=== PATIENT | female | born 1995 | race Caucasian/White ===

== ENCOUNTER 2018-08-03 20:58 | Inpatient (IN) | payer BC ==
[~2018-08-03] VITALS: Ht 165.1 cm; Wt 90.5 kg
[2018-08-03] MEDS ORDERED: KETOROLAC 30 MG INJ IM STA (21:56)
--- NOTE | 2018-08-03 22:09 | ERD ---
ER Documentation Chief Complaint Chief Complaint RLQ ab pain since 1148 HPI 23-year-old female with past medical history of gallstones who presents with complaint of right lower quadrant abdominal pain since this morning. Patient st ates pain is typical of pain when she had prior to being diagnosed with gallstones in 2018 but pain did not latrell as usual with her elixir of vinegar and lemon juice. Pain is remained localized to the right lower quadrant without radiation, she has had intermittent nausea but reports no vomiting episodes, diarrhea, and she is without urinary symptoms. Last menstrual period was about 2 weeks ago and reported as normal. She otherwise denies fevers, chills, chest pain, shortness of breath, no bleeding or discharg or any other concerning symptoms. ROS All systems reviewed and are negative except as per history of present illness. Medications Home Meds Active Scripts Ondansetron (Ondansetron Odt) 4 Mg Tab.rapdis, 4 MG PO Q6H PRN for NAUSEA AND/OR VOMITING, #10 TAB Prov:JEUDINE,GETHO PA-C 08/03/18 Ibuprofen* (Motrin*) 600 Mg Tab, 600 MG PO Q6, #30 TAB Prov:JEUDINE,GETHO PA-C 08/03/18 Tramadol HCl (Tramadol HCl) 50 Mg Tablet, 50 MG PO Q6 PRN for PAIN, #20 TAB Prov:JEUDINE,GETHO PA-C 08/03/18 Cephalexin* (Keflex*) 500 Mg Capsule, 500 MG PO BID for 7 Days, CAP Prov:JEUDINE,GETHO PA-C 08/03/18 Allergies Allergies: Coded Allergies: No Known Allergy (Unverified , 08/03/18) PMhx/Soc Medical and Surgical Hx: pt denies Surgical Hx History of Surgery: No Anesthesia Reaction: No Hx Neurological Disorder: No Hx Respiratory Disorders: No Hx Cardiac Disorders: No Hx Psychiatric Problems: No Hx Miscellaneous Medical Probl: Yes (GALLSTONES) Hx Alcohol Use: No Hx Substance Use: No Hx Tobacco Use: No Smoking Status: Never smoker FmHx Family History: No diabetes, No coronary disease, No other Physical Exam Vitals Vital Signs Date Temp Pulse Resp B/P (MAP) Pulse Ox O2 O2 Flow FiO2 Time Delivery Rate 08/03/18 97.2 109 20 152/93 97 21:01 (112) Physical Exam Const: No acute distress Head: Atraumatic Eyes: Normal Conjunctiva ENT: Normal External Ears, Nose and Mouth. Neck: Full range of motion. No meningismus. Resp: Clear to auscultation bilaterally Cardio: Regular rate and rhythm, no murmurs Abd: Soft, tender to deep palpation to right lower quadrant, no rebound or guarding, non distended. Normal bowel sounds Skin: No petechiae or rashes Back: No midline or flank tenderness Ext: No cyanosis, or edema Neur: Awake and alert Psych: Normal Mood and Affect Result Diagram: 08/03/18220708/03/182207 Results 24 hrs Laboratory Tests Test 08/03/18 22:08 08/03/18 22:15 White Blood Count 9.1 10^3/ul Red Blood Count 4.67 10^6/ul Hemoglobin 12.7 g/dl Hematocrit 38.9 % Mean Corpuscular Volume 83.3 fl Mean Corpuscular Hemoglobin 27.2 pg Mean Corpuscular Hemoglobin Concent 32.6 g/dl Red Cell Distribution Width 12.5 % Platelet Count 261 10^3/UL Mean Platelet Volume 9.8 fl Immature Granulocytes % 0.200 % Neutrophils % 65.3 % Lymphocytes % 24.0 % Monocytes % 9.5 % Eosinophils % 0.7 % Basophils % 0.3 % Nucleated Red Blood Cells % 0.0 /100WBC Immature Granulocytes # 0.020 10^3/ul Neutrophils # 5.9 10^3/ul Lymphocytes # 2.2 10^3/ul Monocytes # 0.9 10^3/ul Eosinophils # 0.1 10^3/ul Basophils # 0.0 10^3/ul Nucleated Red Blood Cells # 0.0 10^3/ul Urine Color ANÍBAL Urine Clarity CLOUDY Urine pH 5.0 Urine Specific [place] 1.021 Urine Ketones NEGATIVE mg/dL Urine Nitrite NEGATIVE mg/dL Urine Bilirubin NEGATIVE mg/dL Urine Urobilinogen 1+ mg/dL Urine Leukocyte Esterase 2+ Cornelio/ul Urine Microscopic RBC 92 /HPF Urine Microscopic WBC 23 /HPF Urine Squamous Epithelial Cells MODERATE /HPF Urine Bacteria MANY /HPF Urine Mucus FEW /HPF Urine Hemoglobin NEGATIVE mg/dL Urine Glucose NEGATIVE mg/dL Urine Total Protein NEGATIVE mg/dl Sodium Level 141 mmol/L Potassium Level 3.9 mmol/L Chloride Level 107 mmol/L Carbon Dioxide Level 26 mmol/L Anion Gap 8 Blood Urea Nitrogen 7 mg/dl Creatinine 0.68 mg/dl Est Glomerular Filtrat Rate mL/min > 60 mL/min Glucose Level 103 mg/dl Calcium Level 9.3 mg/dl Total Bilirubin 0.9 mg/dl Direct Bilirubin 0.00 mg/dl Indirect Bilirubin 0.9 mg/dl Aspartate Amino Transf (AST/SGOT) 748 IU/L Alanine Aminotransferase (ALT/SGPT) 600 IU/L Alkaline Phosphatase 121 IU/L Total Protein 7.3 g/dl Albumin 4.2 g/dl Globulin 3.10 g/dl Albumin/Globulin Ratio 1.35 Lipase 1861 U/L POC Beta HCG, Qualitative NEGATIVE Current Medications Medications Dose Sig/Slava Start Time Status Last (Trade) Ordered Route PRN Stop Time Admin Dose Reason Admin Ketorolac 30 mg ONCE STAT 08/03/18 DC 08/03/18 Tromethamine IM 21:56 22:21 (Toradol) 08/03/18 22:00 Sodium 1,000 ml @ Q8H IV 08/04/18 Chloride 125 mls/hr 00:00 Ondansetron 4 mg ONCE STAT 08/03/18 DC HCl (Zofran IV 23:42 Inj) 08/03/18 23:46 Procedures/MDM 23 yo non- woman with known history of gallstones presenting with abdominal pain. Given laboratory studies and ultrasound findings concern is for gallstone pancreatitis. Patient to be admitted for further evaluation per discussion with Dr. Unger ED attending. ED course: Gallbladder ultrasound for evidence of cholecystitis, common bile duct dilation at 3.6 cm, unremarkable kidneys, unremarkable head of pancreas, tail not visualized Lipase > 1800, elevated AST and ALT, no WBC elevation Medications Toradol, Zofran, 1 L normal saline DISPOSITION PLAN: Be admitted to MedSurg floor for further evaluation and care Line for MRCP Case discussed with Dr. Unger Departure Diagnosis: Primary Impression: Abdominal pain Condition: Stable Patient Instructions: Abdominal Pain Referrals: [facility] YOU HAVE RECEIVED A MEDICAL SCREENING EXAM AND THE RESULTS INDICATE THAT YOU DO NOT HAVE A CONDITION THAT REQUIRES URGENT TREATMENT IN THE EMERGENCY DEPARTMENT. FURTHER EVALUATION AND TREATMENT OF YOUR CONDITION CAN WAIT UNTIL YOU ARE SEEN IN YOUR DOCTORS OFFICE WITHIN THE NEXT 1-2 DAYS. IT IS YOUR RESPONSIBILITY TO MAKE AN APPOINTMENT FOR FOLOW-UP CARE. IF YOU HAVE A PRIMARY DOCTOR --you should call your primary doctor and schedule an appointment IF YOU DO NOT HAVE A PRIMARY DOCTOR YOU CAN CALL OUR PHYSICIAN REFERRAL HOTLINE AT IF YOU CAN NOT AFFORD TO SEE A PHYSICIAN YOU CAN CHOSE FROM THE FOLLOWING [facility] [address] [facility] [address] [facility] [address] [facility] [address] [facility] [address] [facility] [address] Additional Instructions: Call your primary care doctor TOMORROW for an appointment during the next 2-3 days.See the doctor sooner or return here if your condition worsens before your appointment time. CARMEL CONLEY PA-C Aug 03, 2018 22:09
[2018-08-03] MEDS ORDERED: IBUP-1542 PO (23:24)
[2018-08-03] MEDS ORDERED: CEPH-443 PO (23:24)
[2018-08-03] MEDS ORDERED: TRAM50TA2 PO (23:24)
[2018-08-03] MEDS ORDERED: ONDA4TAB14 PO (23:29)
[2018-08-03] MEDS ORDERED: ONDANSETRON 4 MG INJ IV STA (23:42)
[2018-08-03] MEDS ORDERED: SOD CHLORIDE 0.9% 1,000 ML IV SCH (23:54)
[2018-08-04] MEDS ORDERED: SOD CHLORIDE 0.9% 1,000 ML IV SCH
[2018-08-04 01:16] VITALS: Ht 165.1 cm; Wt 90.5 kg
[2018-08-04 01:48] VITALS: BP 123/71; PULSE 69; RESP 18
[2018-08-04] MEDS ORDERED: ONDANSETRON 4 MG INJ IV PRN ×2 (02:30)
[2018-08-04] MEDS ORDERED: morphine 2 MG INJ IV PRN (02:30)
[2018-08-04] MEDS ORDERED: ACETAMINOPHEN 325 MG TAB PO PRN ×2 (02:30)
[2018-08-04] MEDS: DEXTROSE 5%-0.45% NACL 1,000 ML IV SCH ×2 (03:09→19:36)
[2018-08-04] MEDS: CEFTRIAXONE 1 GM/50 ML (PMX) 50 ML IVPB SCH (03:12)
[2018-08-04 07:58] VITALS: BP 115/71; PULSE 61; RESP 18
[2018-08-04] MEDS: FAMOTIDINE 20 MG INJ IV SCH ×2 (08:54→20:33)
--- NOTE | 2018-08-04 14:44 | QN ---
Documentation Comment pt was seen and examined ASHLEY GREEN MD Aug 04, 2018 14:44
--- NOTE | 2018-08-04 15:20 | HP ---
DATE OF ADMISSION: 08/03/2018 CHIEF COMPLAINT: Abdominal pain. HISTORY OF PRESENTING ILLNESS: This is a 23-year-old female with a past medical history of gallstone s, presented to the emergency department complaining of right lower quadrant pain since morning. Acc ording to the patient, last 4 years ago, she started having some pain in the right upper and right lo wer quadrant. She was taking some vinegar, lemon juice and the pain was going away. Last 2017, she was officially diagnosed with having gallstones and she was having multiple episodes. The patient wa s having intermittent episodes of gallstone pain which the episodes would come and go and it was reli eving with vinegar and lemon juice. However yesterday, the pain remains localized in the right lower quadrant and lasted for more than an hour that made her worried and came to the emergency department . The patient had some nausea. Denied any fevers, chills, chest pain, shortness of breath. On arri bhaskar to ED, vital signs show temperature 97.2, heart rate 109, respirations 20, blood pressure 152/93. The patient had a white count of 9.1, hemoglobin 12.7, platelet count 261, BUN of 7, creatinine 0.6 8, AST of 748, ALT of 600, lipase of 1861, total bilirubin 0.9. UA showed 92 RBCs, 23 WBCs. The pat ient had gallbladder ultrasound that showed gallstones in the gallbladder, no evidence of cholecystit is. The patient received NS, Zofran, Toradol and was admitted for further management. PAST MEDICAL HISTORY: History of gallstone diagnosed in 2018. ALLERGIES: NONE. PAST SURGICAL HISTORY: None. MEDICATIONS TAKING AT HOME: None. SOCIAL HISTORY: Denies any history of smoking, alcohol or any drug use. Currently lives at home wit h the family. Studying Sociology and also works part-time. FAMILY HISTORY: Significant for gallstones in the father. REVIEW OF SYSTEMS: The patient complained of right lower quadrant pain with some nausea. Denied any vomiting, any diarrhea, any fevers and chills. Denied any hematemesis, any melena, any bright blood per rectum. Denied any focal neurological deficit. PHYSICAL EXAMINATION: VITAL SIGNS: Currently, temperature 97.5, heart rate 61, respirations 18, blood pressure 115/71. GENERAL: The patient is awake, alert, oriented, does not appear to be in any acute distress. HEENT: Pupils are equal, round, reactive to light. NECK: Supple. No JVD. HEART: Regular rate and rhythm. LUNGS: Clear to auscultate bilaterally. ABDOMEN: Tenderness present in the right lower quadrant, however, which is unusual, soft, nontender, nondistended. EXTREMITIES: No clubbing, cyanosis or edema. LABORATORY DATA: Show AST of 748, ALT 600. Lipase 1861. White count 9.1, hemoglobin 12.1, platelet count 261. UA shows positive for 92 RBCs and 23 WBCs. DIAGNOSTICS: Gallbladder ultrasound shows gallstones in the gallbladder, no evidence of cholecystiti s. ASSESSMENT AND PLAN: This is a 23-year-old female who presented with: 1. Recurrent right upper quadrant and right lower quadrant pain concerning for cholecystitis. 2. Gallstone pancreatitis. 3. Abnormal LFTs likely secondary to #1. 4. Obesity. 5. History of gallstones. 6. Urinary tract infection. PLAN: At this period of time, the patient is admitted to med/surg. The patient will be kept n.p.o., started on IV fluids. The patient was also started on pain control and also started on Rocephin for UTI. We will also send for urine cultures. GI consultation has been obtained with Dr. Boyle. Abhijeet gical consultation has been obtained for Dr. aHas and rest of the treatment will depend on the pat ient's hospitalization course. Dictated By: ASHLEY COFFEY/KETAN Conf#: [id number] DID#: [id number] CC: SHEELA BOYLE; PAMELA MAY MD;*End*
[2018-08-04 15:54] VITALS: BP 96/55; PULSE 63; RESP 18
--- NOTE | 2018-08-04 16:21 | CONS ---
Assessment/Plan Assessment/Plan Hospital Course (Demo Recall) Summary Assessment and Plan: Assessment: Gallstone pancreatitis -MRCP-Cholelithiasis is seen with borderline gallbladder wall thickening and trace pericholecystic fluid extending to the nadine hepatis. No biliary obstruction and no visible intraductal stone Transaminitis Cholelithiasis Obesity UTI Plan: MRCP reviewed no biliary obstruction or visible intraductal stone noted therefore no plan for ERCP at this time Check hepatitis panel NPO Hyperhydration HIDA scan Further recommendations based on clinical course Patient seen in collaboration with Dr. Boyle CC: SHEELA BOYLE MD ; Consultation Date/Type/Reason Admit Date/Time Aug 03, 2018 at 23:55 Date of Consultation: Aug 04, 2018 Type of Consult GI Reason for Consultation Gallstone pancreatitis Date/Time of Note DATE: 08/04/18 TIME: 16:06 Hx of Present Illness This is a 23-year-old female past medical history of obesity and cholelithiasis who presented to the hospital with complaints of right-sided abdominal pain x1 day work-up was completed in the ED including hematology showing no significant findings chemistry panel was obtained patient with significant elevation of aminotransferase and a lipase of 1861. EGD is negative of note additionally UA was obtained and noted to be abnormal patient has been started on antibiotics thank you she is currently n.p.o. with hyperhydration and MRCP was ordered showing cholelithiasis with borderline gallbladder wall thickening and trace pericholecystic fluid extending to the nadine hepatis, barely obstruction and no visible intra-ductal stone on MRCP additionally a gallbladder ultrasound was ordered impression is as following. Gallstones and gallbladder. No evidence of cholecystitis. Otherwise unremarkable right upper quadrant abdominal ultrasound. Currently patient denies any abdominal pain since pain medication she received this morning. She denies nausea/vomiting or change in bowel habits. She also notes symptoms have been similar on 2 other occasions and one 4 years ago and one 1 year ago however this time symptoms seem to last longer. I discussed results of MRCP with patient with plan to move forward with HIDA scan. Review of Systems: A 12 system, review was conducted and is negative except as noted in the HPI or here. Past Medical History Medications Current Medications Famotidine (Pepcid Iv) 20 mg Q12 IV Last administered on 08/04/18at 08:54; Admin Dose 20 MG; Start 08/04/18 at 09:00 Ondansetron HCl (Zofran Inj) 4 mg Q6H PRN IV NAUSEA AND/OR VOMITING; Start 08/04/18 at 02:30 Acetaminophen (Tylenol Tab) 650 mg Q6H PRN PO MILD PAIN(1-3)OR ELEVATED TEMP; Start 08/04/18 at 02:30 Morphine Sulfate (morphine) 2 mg Q4H PRN IV SEVERE PAIN LEVEL 7-10; Start 08/04/18 at 02:30 Ceftriaxone Sodium 50 ml @ 100 mls/hr Q24H IVPB Last administered on 08/04/18at 03:12; Admin Dose 100 MLS/HR; Start 08/04/18 at 02:30 Dextrose/Sodium Chloride 1,000 ml @ 75 mls/hr [id number] IV Last administered on 08/04/18at 03:09; Admin Dose 75 MLS/HR; Start 08/04/18 at 03:00 Allergies: Coded Allergies: No Known Allergy (Unverified , 08/03/18) Social History Smoking Status: Never smoker Exam/Review of Systems Exam Vitals Vital Signs Date Temp Pulse Resp B/P (MAP) Pulse Ox O2 O2 Flow FiO2 Time Delivery Rate 08/04/18 98.6 63 18 96/55 (69) 99 Room Air 15:54 Intake and Output 08/03/18 08/03/18 08/04/18 1515:00 23:00 07:00 IntakeIntake Total 200 ml BalanceBalance 200 ml Exam PHYSICAL EXAMINATION: GENERAL: Alert & oriented x 3, obesity, in no acute distress SKIN: No lesions HEAD: Normocephalic, atraumatic, no tenderness. EYES: Pupils equal reactive to light and accommodation, no discharge. EARS/NOSE AND THROAT: Ears normal, nose normal. NECK: Supple, no masses. CHEST: Inspection within normal limits. CARDIOVASCULAR: Heart: Regular rate and rhythm RESPIRATORY: Lungs clear to auscultation GASTROINTESTINAL AND LIVER: Abdomen: Soft, upper abdominal tenderness, non- distended, no hernias, no masses, no rebound tenderness, normoactive bowel sounds. Rectal: Deferred. GENITOURINARY: Female genitalia within normal limits. EXTREMITIES: No cyanosis, clubbing or edema. Results Result Diagram: 08/03/18220708/03/182207 Results 24hrs Laboratory Tests Test 08/03/18 22:08 08/03/18 22:15 White Blood Count 9.1 Red Blood Count 4.67 Hemoglobin 12.7 Hematocrit 38.9 Mean Corpuscular Volume 83.3 Mean Corpuscular Hemoglobin 27.2 L Mean Corpuscular Hemoglobin Concent 32.6 Red Cell Distribution Width 12.5 Platelet Count 261 Mean Platelet Volume 9.8 Immature Granulocytes % 0.200 Neutrophils % 65.3 Lymphocytes % 24.0 Monocytes % 9.5 Eosinophils % 0.7 Basophils % 0.3 Nucleated Red Blood Cells % 0.0 Immature Granulocytes # 0.020 Neutrophils # 5.9 Lymphocytes # 2.2 Monocytes # 0.9 Eosinophils # 0.1 Basophils # 0.0 Nucleated Red Blood Cells # 0.0 Urine Color ANÍBAL Urine Clarity CLOUDY A Urine pH 5.0 Urine Specific [place] 1.021 Urine Ketones NEGATIVE Urine Nitrite NEGATIVE Urine Bilirubin NEGATIVE Urine Urobilinogen 1+ H Urine Leukocyte Esterase 2+ H Urine Microscopic RBC 92 H Urine Microscopic WBC 23 H Urine Squamous Epithelial Cells MODERATE Urine Bacteria MANY A Urine Mucus FEW A Urine Hemoglobin NEGATIVE Urine Glucose NEGATIVE Urine Total Protein NEGATIVE Sodium Level 141 Potassium Level 3.9 Chloride Level 107 Carbon Dioxide Level 26 Anion Gap 8 Blood Urea Nitrogen 7 Creatinine 0.68 Est Glomerular Filtrat Rate mL/min > 60 Glucose Level 103 Calcium Level 9.3 Total Bilirubin 0.9 Direct Bilirubin 0.00 Indirect Bilirubin 0.9 Aspartate Amino Transf (AST/SGOT) 748 H Alanine Aminotransferase (ALT/SGPT) 600 H Alkaline Phosphatase 121 Total Protein 7.3 Albumin 4.2 Globulin 3.10 Albumin/Globulin Ratio 1.35 Lipase 1861 H POC Beta HCG, Qualitative NEGATIVE Medications Medication Current Medications Famotidine (Pepcid Iv) 20 mg Q12 IV Last administered on 08/04/18at 08:54; Admin Dose 20 MG; Start 08/04/18 at 09:00 Ondansetron HCl (Zofran Inj) 4 mg Q6H PRN IV NAUSEA AND/OR VOMITING; Start 08/04/18 at 02:30 Acetaminophen (Tylenol Tab) 650 mg Q6H PRN PO MILD PAIN(1-3)OR ELEVATED TEMP; Start 08/04/18 at 02:30 Morphine Sulfate (morphine) 2 mg Q4H PRN IV SEVERE PAIN LEVEL 7-10; Start 08/04/18 at 02:30 Ceftriaxone Sodium 50 ml @ 100 mls/hr Q24H IVPB Last administered on 08/04/18at 03:12; Admin Dose 100 MLS/HR; Start 08/04/18 at 02:30 Dextrose/Sodium Chloride 1,000 ml @ 75 mls/hr [id number] IV Last administered on 08/04/18at 03:09; Admin Dose 75 MLS/HR; Start 08/04/18 at 03:00 JUAN LAM Aug 04, 2018 16:16
[2018-08-04 20:14] VITALS: BP 103/64; PULSE 69; RESP 18
[2018-08-05 02:14] VITALS: BP 102/62; PULSE 60; RESP 18
[2018-08-05] MEDS: CEFTRIAXONE 1 GM/50 ML (PMX) 50 ML IVPB SCH (02:39)
[2018-08-05] MEDS: DEXTROSE 5%-0.45% NACL 1,000 ML IV SCH ×3 (05:40→22:55)
[2018-08-05 08:23] VITALS: BP 114/68; PULSE 63; RESP 18
[2018-08-05] MEDS: FAMOTIDINE 20 MG INJ IV SCH ×2 (08:32→20:57)
--- NOTE | 2018-08-05 08:54 | CONS ---
Assessment/Plan Assessment/Plan Problems: (1) Pancreatitis, gallstone Status: Acute (2) Pancreatitis due to biliary obstruction Status: Acute Qualifiers: Qualified Codes: K85.10 - Biliary acute pancreatitis without necrosis or infection Assessment/Plan (Daily) Patient with gallstone pancreatitis and known gallstones. Currently feels much better. Given the very fast resolution of the pancreatitis and plan to have the surgery this week we will schedule the patient for laparoscopic cholecystectomy. Consultation Date/Type/Reason Admit Date/Time Aug 03, 2018 at 23:55 Date of Consultation: Aug 05, 2018 Type of Consult Surgical Reason for Consultation Gallstone pancreatitis. Date/Time of Note DATE: 08/05/18 TIME: 08:51 Hx of Present Illness 23-year-old female otherwise healthy, reported a history of recurrent attack of right upper quadrant pain. The recent attack started 2 days ago that brought her to the emergency room. In the emergency room she was diagnosed with gallstones and elevated lipase. MRCP was essentially normal. Constitutional: no complaints, improved Eyes: no complaints ENT: no complaints Respiratory: no complaints Cardiovascular: no complaints Gastrointestinal: pain Genitourinary: no complaints Musculoskeletal: no complaints Skin: no complaints Neurologic: no complaints Endocrine: no complaints Lymphatic: no complaints Psychological: no complaints, nl mood/affect Immunologic: no complaints Past Medical History Medical History: no pertinent history Medications Current Medications Famotidine (Pepcid Iv) 20 mg Q12 IV Last administered on 08/05/18at 08:32; Admin Dose 20 MG; Start 08/04/18 at 09:00 Ondansetron HCl (Zofran Inj) 4 mg Q6H PRN IV NAUSEA AND/OR VOMITING; Start 08/04/18 at 02:30 Acetaminophen (Tylenol Tab) 650 mg Q6H PRN PO MILD PAIN(1-3)OR ELEVATED TEMP; Start 08/04/18 at 02:30 Morphine Sulfate (morphine) 2 mg Q4H PRN IV SEVERE PAIN LEVEL 7-10; Start 08/04/18 at 02:30 Ceftriaxone Sodium 50 ml @ 100 mls/hr Q24H IVPB Last administered on 08/05/18at 02:39; Admin Dose 100 MLS/HR; Start 08/04/18 at 02:30 Dextrose/Sodium Chloride 1,000 ml @ 75 mls/hr [id number] IV Last administered on 08/05/18at 08:32; Admin Dose 75 MLS/HR; Start 08/04/18 at 03:00 Allergies: Coded Allergies: No Known Allergy (Unverified , 08/03/18) Past Surgical History Past Surgical Hx: no surgical history Family History Significant Family History: no pertinent family hx Social History Smoking Status: Never smoker Exam/Review of Systems Exam Vitals Vital Signs Date Temp Pulse Resp B/P (MAP) Pulse Ox O2 O2 Flow FiO2 Time Delivery Rate 08/05/18 98.2 63 18 114/68 98 Room Air 08:23 (83) Intake and Output 08/04/18 08/04/18 08/05/18 1515:00 23:00 07:00 IntakeIntake Total 850 ml 875 ml BalanceBalance 850 ml 875 ml Constitutional: alert, oriented, well developed Psych: no complaints, nl mood/affect Head: normocephalic, atraumatic Eyes: nl conjunctiva, EOMI, nl lids, nl sclera, PERRL ENMT: nl external ears & nose, nl lips & teeth, nl nasal mucosa & septum Neck: supple, non-tender Respiratory: clear to auscultation, normal air movement Cardiovascular: regular rate and rhythm, nl pulses Gastrointestinal: soft, nl liver, spleen, non-tender Musculoskeletal: nl extremities to inspection, nl gait and stance Extremities: normal pulses Neurological: BUNDLES HANGER II-XII intact, nl mental status, nl speech, nl strength Skin: nl turgor; No rash or lesions Lymph: nl lymph nodes Results Result Diagram: 08/05/18 0425 08/05/18 0425 Results 24hrs Laboratory Tests Test 08/05/18 04:25 White Blood Count 5.6 # Red Blood Count 4.15 L Hemoglobin 11.1 L Hematocrit 34.8 L Mean Corpuscular Volume 83.9 Mean Corpuscular Hemoglobin 26.7 L Mean Corpuscular Hemoglobin Concent 31.9 L Red Cell Distribution Width 12.8 Platelet Count 214 Mean Platelet Volume 10.6 H Immature Granulocytes % 0.200 Neutrophils % 46.1 Lymphocytes % 37.5 Monocytes % 10.5 Eosinophils % 5.2 Basophils % 0.5 Nucleated Red Blood Cells % 0.0 Immature Granulocytes # 0.010 Neutrophils # 2.6 Lymphocytes # 2.1 Monocytes # 0.6 Eosinophils # 0.3 Basophils # 0.0 Nucleated Red Blood Cells # 0.0 Sodium Level 141 Potassium Level 3.6 Chloride Level 109 Carbon Dioxide Level 25 Anion Gap 7 Blood Urea Nitrogen 5 L Creatinine 0.68 Est Glomerular Filtrat Rate mL/min > 60 Glucose Level 91 Calcium Level 8.5 Phosphorus Level 4.4 Magnesium Level 1.7 Total Bilirubin 0.7 Direct Bilirubin 0.00 Indirect Bilirubin 0.7 Aspartate Amino Transf (AST/SGOT) 130 H Alanine Aminotransferase (ALT/SGPT) 321 H Alkaline Phosphatase 93 Total Protein 6.1 # Albumin 3.3 Globulin 2.80 Albumin/Globulin Ratio 1.17 Lipase 75 Medications Medication Current Medications Famotidine (Pepcid Iv) 20 mg Q12 IV Last administered on 08/05/18 08:32; Admin Dose 20 MG; Start 08/04/18 at 09:00 Ondansetron HCl (Zofran Inj) 4 mg Q6H PRN IV NAUSEA AND/OR VOMITING; Start 08/04/18 at 02:30 Acetaminophen (Tylenol Tab) 650 mg Q6H PRN PO MILD PAIN(1-3)OR ELEVATED TEMP; Start 08/04/18 at 02:30 Morphine Sulfate (morphine) 2 mg Q4H PRN IV SEVERE PAIN LEVEL 7-10; Start 08/04/18 at 02:30 Ceftriaxone Sodium 50 ml @ 100 mls/hr Q24H IVPB Last administered on 08/05/18 02:39; Admin Dose 100 MLS/HR; Start 08/04/18 at 02:30 Dextrose/Sodium Chloride 1,000 ml @ 75 mls/hr [id number] IV Last administered on 08/05/18 08:32; Admin Dose 75 MLS/HR; Start 08/04/18 at 03:00 ODILON ADAMS MD Aug 05, 2018 08:54
--- NOTE | 2018-08-05 10:25 | PN ---
Date/Time of Note Date/Time of Note DATE: 08/05/18 TIME: 10:24 Assessment/Plan VTE Prophylaxis Risk score (from Ns)>0 risk: 1 SCD applied (from Nsg): Yes Pharmacological prophylaxis: other (scds) Lines/Catheters IV [facility]ter Type (from [facility]): Peripheral IV Assessment/Plan Hospital Course Summary Assessment and Plan: Assessment: Gallstone pancreatitis- resolved -MRCP-Cholelithiasis is seen with borderline gallbladder wall thickening and trace pericholecystic fluid extending to the nadine hepatis. No biliary obstruction and no visible intraductal stone Transaminitis- trending down Cholelithiasis Obesity UTI- on antibiotics Plan: Start Clear liquid diet today- advance to low fat as tolerated Cancel HIDA scan- pt to have laparoscopic cholecystectomy near future, likely Supportive care. Patient seen in collaboration with Dr. Boyle Subjective: Course reviewed with nursing staff Patient interviewed and examined All labs, imaging and other results reviewed The patient events. Patient states she feels very well today no complaints of nausea/vomiting or abdominal pain. Lipase has returned to normal. LFTs are trending down nicely hepatic serology is negative as expected. Exam PHYSICAL EXAMINATION: GENERAL: Alert & oriented x 3, obesity, in no acute distress SKIN: No lesions HEAD: Normocephalic, atraumatic, no tenderness. EYES: Pupils equal reactive to light and accommodation, no discharge. EARS/NOSE AND THROAT: Ears normal, nose normal. NECK: Supple, no masses. CHEST: Inspection within normal limits. CARDIOVASCULAR: Heart: Regular rate and rhythm RESPIRATORY: Lungs clear to auscultation GASTROINTESTINAL AND LIVER: Abdomen: Soft, upper abdominal tenderness, non- distended, no hernias, no masses, no rebound tenderness, normoactive bowel sounds. Rectal: Deferred. GENITOURINARY: Female genitalia within normal limits. EXTREMITIES: No cyanosis, clubbing or edema. Result Diagram: 08/05/18 0425 08/05/18 0425 Results 24hrs Laboratory Tests Test 08/05/18 04:25 White Blood Count 5.6 # Red Blood Count 4.15 L Hemoglobin 11.1 L Hematocrit 34.8 L Mean Corpuscular Volume 83.9 Mean Corpuscular Hemoglobin 26.7 L Mean Corpuscular Hemoglobin Concent 31.9 L Red Cell Distribution Width 12.8 Platelet Count 214 Mean Platelet Volume 10.6 H Immature Granulocytes % 0.200 Neutrophils % 46.1 Lymphocytes % 37.5 Monocytes % 10.5 Eosinophils % 5.2 Basophils % 0.5 Nucleated Red Blood Cells % 0.0 Immature Granulocytes # 0.010 Neutrophils # 2.6 Lymphocytes # 2.1 Monocytes # 0.6 Eosinophils # 0.3 Basophils # 0.0 Nucleated Red Blood Cells # 0.0 Sodium Level 141 Potassium Level 3.6 Chloride Level 109 Carbon Dioxide Level 25 Anion Gap 7 Blood Urea Nitrogen 5 L Creatinine 0.68 Est Glomerular Filtrat Rate mL/min > 60 Glucose Level 91 Calcium Level 8.5 Phosphorus Level 4.4 Magnesium Level 1.7 Total Bilirubin 0.7 Direct Bilirubin 0.00 Indirect Bilirubin 0.7 Aspartate Amino Transf (AST/SGOT) 130 H Alanine Aminotransferase (ALT/SGPT) 321 H Alkaline Phosphatase 93 Total Protein 6.1 # Albumin 3.3 Globulin 2.80 Albumin/Globulin Ratio 1.17 Lipase 75 Exam/Review of Systems Exam Vitals Vital Signs Date Temp Pulse Resp B/P (MAP) Pulse Ox O2 O2 Flow FiO2 Time Delivery Rate 08/05/18 98.2 63 18 114/68 98 Room Air 08:23 (83) Intake and Output 08/04/18 08/04/18 08/05/18 1515:00 23:00 07:00 IntakeIntake Total 850 ml 875 ml BalanceBalance 850 ml 875 ml Results Results 24hrs Laboratory Tests Test 08/05/18 04:25 White Blood Count 5.6 # Red Blood Count 4.15 L Hemoglobin 11.1 L Hematocrit 34.8 L Mean Corpuscular Volume 83.9 Mean Corpuscular Hemoglobin 26.7 L Mean Corpuscular Hemoglobin Concent 31.9 L Red Cell Distribution Width 12.8 Platelet Count 214 Mean Platelet Volume 10.6 H Immature Granulocytes % 0.200 Neutrophils % 46.1 Lymphocytes % 37.5 Monocytes % 10.5 Eosinophils % 5.2 Basophils % 0.5 Nucleated Red Blood Cells % 0.0 Immature Granulocytes # 0.010 Neutrophils # 2.6 Lymphocytes # 2.1 Monocytes # 0.6 Eosinophils # 0.3 Basophils # 0.0 Nucleated Red Blood Cells # 0.0 Sodium Level 141 Potassium Level 3.6 Chloride Level 109 Carbon Dioxide Level 25 Anion Gap 7 Blood Urea Nitrogen 5 L Creatinine 0.68 Est Glomerular Filtrat Rate mL/min > 60 Glucose Level 91 Calcium Level 8.5 Phosphorus Level 4.4 Magnesium Level 1.7 Total Bilirubin 0.7 Direct Bilirubin 0.00 Indirect Bilirubin 0.7 Aspartate Amino Transf (AST/SGOT) 130 H Alanine Aminotransferase (ALT/SGPT) 321 H Alkaline Phosphatase 93 Total Protein 6.1 # Albumin 3.3 Globulin 2.80 Albumin/Globulin Ratio 1.17 Lipase 75 Medications Medication Current Medications Famotidine (Pepcid Iv) 20 mg Q12 IV Last administered on 08/05/18 08:32; Admin Dose 20 MG; Start 08/04/18 at 09:00 Ondansetron HCl (Zofran Inj) 4 mg Q6H PRN IV NAUSEA AND/OR VOMITING; Start 08/04/18 at 02:30 Acetaminophen (Tylenol Tab) 650 mg Q6H PRN PO MILD PAIN(1-3)OR ELEVATED TEMP; Start 08/04/18 at 02:30 Morphine Sulfate (morphine) 2 mg Q4H PRN IV SEVERE PAIN LEVEL 7-10; Start 08/04/18 at 02:30 Ceftriaxone Sodium 50 ml @ 100 mls/hr Q24H IVPB Last administered on 08/05/18 02:39; Admin Dose 100 MLS/HR; Start 08/04/18 at 02:30 Dextrose/Sodium Chloride 1,000 ml @ 75 mls/hr [id number] IV Last administered on 08/05/18 08:32; Admin Dose 75 MLS/HR; Start 08/04/18 at 03:00 JUAN LAM Aug 05, 2018 10:25
--- NOTE | 2018-08-05 10:51 | PN ---
Date/Time of Note Date/Time of Note DATE: 08/05/18 TIME: 10:48 Assessment/Plan VTE Prophylaxis Risk score (from Ns)>0 risk: 1 SCD applied (from Ns): Yes Pharmacological prophylaxis: NA/contraindicated Pharm contraindication: low risk/ambulating Lines/Catheters IV Catheter Type (from Nrs): Peripheral IV Assessment/Plan Assessment/Plan 23-year-old female who presented with: 1. Recurrent right upper quadrant and right lower quadrant pain concerning for cholecystitis/symtomatic gallstones 2. Gallstone pancreatitis. 3. Abnormal LFTs likely secondary to #1. 4. Obesity. 5. History of gallstones. 6. Urinary tract infection. Plan - clinically improved - advance diet> CLD - pain control - ucx pending - cw rocephin for UTI - OR on fro cholecystectomy Result Diagram: 08/05/185 08/05/18424 Results 24hrs Laboratory Tests Test 08/05/18 04:25 White Blood Count 5.6 # Red Blood Count 4.15 L Hemoglobin 11.1 L Hematocrit 34.8 L Mean Corpuscular Volume 83.9 Mean Corpuscular Hemoglobin 26.7 L Mean Corpuscular Hemoglobin Concent 31.9 L Red Cell Distribution Width 12.8 Platelet Count 214 Mean Platelet Volume 10.6 H Immature Granulocytes % 0.200 Neutrophils % 46.1 Lymphocytes % 37.5 Monocytes % 10.5 Eosinophils % 5.2 Basophils % 0.5 Nucleated Red Blood Cells % 0.0 Immature Granulocytes # 0.010 Neutrophils # 2.6 Lymphocytes # 2.1 Monocytes # 0.6 Eosinophils # 0.3 Basophils # 0.0 Nucleated Red Blood Cells # 0.0 Sodium Level 141 Potassium Level 3.6 Chloride Level 109 Carbon Dioxide Level 25 Anion Gap 7 Blood Urea Nitrogen 5 L Creatinine 0.68 Est Glomerular Filtrat Rate mL/min > 60 Glucose Level 91 Calcium Level 8.5 Phosphorus Level 4.4 Magnesium Level 1.7 Total Bilirubin 0.7 Direct Bilirubin 0.00 Indirect Bilirubin 0.7 Aspartate Amino Transf (AST/SGOT) 130 H Alanine Aminotransferase (ALT/SGPT) 321 H Alkaline Phosphatase 93 Total Protein 6.1 # Albumin 3.3 Globulin 2.80 Albumin/Globulin Ratio 1.17 Lipase 75 Subjective 24 Hr Interval Summary Free Text/Dictation doing better pain is resolved Exam/Review of Systems Exam Vitals Vital Signs Date Temp Pulse Resp B/P (MAP) Pulse Ox O2 O2 Flow FiO2 Time Delivery Rate 08/05/18 98.2 63 18 114/68 98 Room Air 08:23 (83) Intake and Output 08/04/18 08/04/18 08/05/18 1515:00 23:00 07:00 IntakeIntake Total 850 ml 875 ml BalanceBalance 850 ml 875 ml Exam GENERAL: The patient is awake, alert, oriented, does not appear to be in any acute distress. HEENT: Pupils are equal, round, reactive to light. NECK: Supple. No JVD. HEART: Regular rate and rhythm. LUNGS: Clear to auscultate bilaterally. ABDOMEN: Tenderness resolved EXTREMITIES: No clubbing, cyanosis or edema. Results Results 24hrs Laboratory Tests Test 08/05/18 04:25 White Blood Count 5.6 # Red Blood Count 4.15 L Hemoglobin 11.1 L Hematocrit 34.8 L Mean Corpuscular Volume 83.9 Mean Corpuscular Hemoglobin 26.7 L Mean Corpuscular Hemoglobin Concent 31.9 L Red Cell Distribution Width 12.8 Platelet Count 214 Mean Platelet Volume 10.6 H Immature Granulocytes % 0.200 Neutrophils % 46.1 Lymphocytes % 37.5 Monocytes % 10.5 Eosinophils % 5.2 Basophils % 0.5 Nucleated Red Blood Cells % 0.0 Immature Granulocytes # 0.010 Neutrophils # 2.6 Lymphocytes # 2.1 Monocytes # 0.6 Eosinophils # 0.3 Basophils # 0.0 Nucleated Red Blood Cells # 0.0 Sodium Level 141 Potassium Level 3.6 Chloride Level 109 Carbon Dioxide Level 25 Anion Gap 7 Blood Urea Nitrogen 5 L Creatinine 0.68 Est Glomerular Filtrat Rate mL/min > 60 Glucose Level 91 Calcium Level 8.5 Phosphorus Level 4.4 Magnesium Level 1.7 Total Bilirubin 0.7 Direct Bilirubin 0.00 Indirect Bilirubin 0.7 Aspartate Amino Transf (AST/SGOT) 130 H Alanine Aminotransferase (ALT/SGPT) 321 H Alkaline Phosphatase 93 Total Protein 6.1 # Albumin 3.3 Globulin 2.80 Albumin/Globulin Ratio 1.17 Lipase 75 Medications Medication Current Medications Famotidine (Pepcid Iv) 20 mg Q12 IV Last administered on 08/05/18at 08:32; Admin Dose 20 MG; Start 08/04/18 at 09:00 Ondansetron HCl (Zofran Inj) 4 mg Q6H PRN IV NAUSEA AND/OR VOMITING; Start 08/04/18 at 02:30 Acetaminophen (Tylenol Tab) 650 mg Q6H PRN PO MILD PAIN(1-3)OR ELEVATED TEMP; Start 08/04/18 at 02:30 Morphine Sulfate (morphine) 2 mg Q4H PRN IV SEVERE PAIN LEVEL 7-10; Start 08/04/18 at 02:30 Ceftriaxone Sodium 50 ml @ 100 mls/hr Q24H IVPB Last administered on 08/05/18at 02:39; Admin Dose 100 MLS/HR; Start 08/04/18 at 02:30 Dextrose/Sodium Chloride 1,000 ml @ 75 mls/hr [id number] IV Last administered on 08/05/18at 08:32; Admin Dose 75 MLS/HR; Start 08/04/18 at 03:00 ASHLEY GREEN MD Aug 05, 2018 10:51
[2018-08-05 14:01] VITALS: BP_SYST 117; BP_SYST 119; BP_DIAS 53; BP_DIAS 78; PULSE 58; PULSE 67; RESP 18
[2018-08-05 19:00] VITALS: BP 109/65; PULSE 68; RESP 18
[2018-08-06 01:31] VITALS: BP 117/57; PULSE 68; RESP 18
[2018-08-06] MEDS: CEFTRIAXONE 1 GM/50 ML (PMX) 50 ML IVPB SCH (02:45)
[2018-08-06 08:01] VITALS: BP 106/56; PULSE 68; RESP 18
[2018-08-06] MEDS: DEXTROSE 5%-0.45% NACL 1,000 ML IV SCH ×2 (08:20→12:33)
[2018-08-06] MEDS: FAMOTIDINE 20 MG INJ IV SCH ×2 (09:00→21:08)
--- NOTE | 2018-08-06 13:17 | PN ---
Date/Time of Note Date/Time of Note DATE: 08/06/18 TIME: 13:16 Assessment/Plan VTE Prophylaxis Risk score (from Ns)>0 risk: 1 SCD applied (from Nsg): Yes Pharmacological prophylaxis: NA/contraindicated Pharm contraindication: low risk/ambulating Lines/Catheters IV Catheter Type (from Nrs): Peripheral IV Assessment/Plan Assessment/Plan 23-year-old female who presented with: 1. Recurrent right upper quadrant and right lower quadrant pain concerning for cholecystitis/symtomatic gallstones 2. Gallstone pancreatitis.with improved lipase, MRCP NEG 3. Abnormal LFTs likely secondary to #1.improving 4. Obesity. 5. History of gallstones. 6. Urinary tract infection. Plan - clinically improved - CLD - pain control, iv fluids - ucx neg so far - cw rocephin for UTI - OR tmw for cholecystectomy Result Diagram: 08/05/18 0425 08/06/18 0436 Results 24hrs Laboratory Tests Test 08/06/18 04:36 Prothrombin Time 13.8 Prothrombin Time Ratio 1.1 INR International Normalized Ratio 1.05 Sodium Level 141 Potassium Level 3.8 Chloride Level 108 Carbon Dioxide Level 27 Anion Gap 6 Blood Urea Nitrogen 3 L Creatinine 0.68 Est Glomerular Filtrat Rate mL/min > 60 Glucose Level 94 Calcium Level 8.7 Total Bilirubin 0.6 Direct Bilirubin 0.00 Indirect Bilirubin 0.6 Aspartate Amino Transf (AST/SGOT) 53 H Alanine Aminotransferase (ALT/SGPT) 219 H Alkaline Phosphatase 83 Total Protein 6.0 L Albumin 3.2 L Globulin 2.80 Albumin/Globulin Ratio 1.14 Subjective 24 Hr Interval Summary Free Text/Dictation She is doing good. Denies any pain Exam/Review of Systems Exam Vitals Vital Signs Date Temp Pulse Resp B/P (MAP) Pulse Ox O2 O2 Flow FiO2 Time Delivery Rate 08/06/18 98.0 68 18 106/56 94 Room Air 08:01 (73) Intake and Output 08/05/18 08/05/18 08/06/18 1515:00 23:00 07:00 IntakeIntake Total 1305 ml 1875 ml 50 ml BalanceBalance 1305 ml 1875 ml 50 ml Exam GENERAL: The patient is awake, alert, oriented, does not appear to be in any acute distress. HEENT: Pupils are equal, round, reactive to light. NECK: Supple. No JVD. HEART: Regular rate and rhythm. LUNGS: Clear to auscultate bilaterally. ABDOMEN: Tenderness resolved EXTREMITIES: No clubbing, cyanosis or edema. Results Results 24hrs Laboratory Tests Test 08/06/18 04:36 Prothrombin Time 13.8 Prothrombin Time Ratio 1.1 INR International Normalized Ratio 1.05 Sodium Level 141 Potassium Level 3.8 Chloride Level 108 Carbon Dioxide Level 27 Anion Gap 6 Blood Urea Nitrogen 3 L Creatinine 0.68 Est Glomerular Filtrat Rate mL/min > 60 Glucose Level 94 Calcium Level 8.7 Total Bilirubin 0.6 Direct Bilirubin 0.00 Indirect Bilirubin 0.6 Aspartate Amino Transf (AST/SGOT) 53 H Alanine Aminotransferase (ALT/SGPT) 219 H Alkaline Phosphatase 83 Total Protein 6.0 L Albumin 3.2 L Globulin 2.80 Albumin/Globulin Ratio 1.14 Medications Medication Current Medications Famotidine (Pepcid Iv) 20 mg Q12 IV Last administered on 08/06/18at 09:00; Admin Dose 20 MG; Start 08/04/18 at 09:00 Ondansetron HCl (Zofran Inj) 4 mg Q6H PRN IV NAUSEA AND/OR VOMITING; Start 08/04/18 at 02:30 Acetaminophen (Tylenol Tab) 650 mg Q6H PRN PO MILD PAIN(1-3)OR ELEVATED TEMP; Start 08/04/18 at 02:30 Morphine Sulfate (morphine) 2 mg Q4H PRN IV SEVERE PAIN LEVEL 7-10; Start 08/04/18 at 02:30 Ceftriaxone Sodium 50 ml @ 100 mls/hr Q24H IVPB Last administered on 08/06/18at 02:45; Admin Dose 100 MLS/HR; Start 08/04/18 at 02:30 Dextrose/Sodium Chloride 1,000 ml @ 75 mls/hr [id number] IV Last administered on 08/06/18at 12:33; Admin Dose 75 MLS/HR; Start 08/04/18 at 03:00 ASHLEY GREEN MD Aug 06, 2018 13:17
--- NOTE | 2018-08-06 14:59 | PN ---
Date/Time of Note Date/Time of Note DATE: 08/06/18 TIME: 14:56 Assessment/Plan VTE Prophylaxis Risk score (from Ns)>0 risk: 1 SCD applied (from Ns): Yes Pharmacological prophylaxis: NA/contraindicated Pharm contraindication: low risk/ambulating Lines/Catheters IV Catheter Type (from [facility]): Peripheral IV Assessment/Plan Hospital Course Summary Assessment and Plan: Assessment: Gallstone pancreatitis- resolved -MRCP-Cholelithiasis is seen with borderline gallbladder wall thickening and trace pericholecystic fluid extending to the nadine hepatis. No biliary obstruction and no visible intraductal stone Transaminitis- trending down Cholelithiasis Obesity UTI- on antibiotics Plan: Continue clear liquid diet- NPO after midnight Planed cholecystectomy tomorrow Patient seen in collaboration with Dr. Boyle Subjective: Course reviewed with nursing staff Patient interviewed and examined All labs, imaging and other results reviewed Patient states she feels very well no complaints of pain nausea or vomiting. She requesting a clear liquid diet and she is doing well. No overnight events we will continue monitor Exam PHYSICAL EXAMINATION: GENERAL: Alert & oriented x 3, obesity, in no acute distress SKIN: No lesions HEAD: Normocephalic, atraumatic, no tenderness. EYES: Pupils equal reactive to light and accommodation, no discharge. EARS/NOSE AND THROAT: Ears normal, nose normal. NECK: Supple, no masses. CHEST: Inspection within normal limits. CARDIOVASCULAR: Heart: Regular rate and rhythm RESPIRATORY: Lungs clear to auscultation GASTROINTESTINAL AND LIVER: Abdomen: Soft, upper abdominal tenderness, non- distended, no hernias, no masses, no rebound tenderness, normoactive bowel sounds. Rectal: Deferred. GENITOURINARY: Female genitalia within normal limits. EXTREMITIES: No cyanosis, clubbing or edema. Result Diagram: 08/05/18 0425 08/06/18 0436 Results 24hrs Laboratory Tests Test 08/06/18 04:36 Prothrombin Time 13.8 Prothrombin Time Ratio 1.1 INR International Normalized Ratio 1.05 Sodium Level 141 Potassium Level 3.8 Chloride Level 108 Carbon Dioxide Level 27 Anion Gap 6 Blood Urea Nitrogen 3 L Creatinine 0.68 Est Glomerular Filtrat Rate mL/min > 60 Glucose Level 94 Calcium Level 8.7 Total Bilirubin 0.6 Direct Bilirubin 0.00 Indirect Bilirubin 0.6 Aspartate Amino Transf (AST/SGOT) 53 H Alanine Aminotransferase (ALT/SGPT) 219 H Alkaline Phosphatase 83 Total Protein 6.0 L Albumin 3.2 L Globulin 2.80 Albumin/Globulin Ratio 1.14 Exam/Review of Systems Exam Vitals Vital Signs Date Temp Pulse Resp B/P (MAP) Pulse Ox O2 O2 Flow FiO2 Time Delivery Rate 08/06/18 98.0 68 18 106/56 94 Room Air 08:01 (73) Intake and Output 08/05/18 08/05/18 08/06/18 1515:00 23:00 07:00 IntakeIntake Total 1305 ml 1875 ml 50 ml BalanceBalance 1305 ml 1875 ml 50 ml Results Results 24hrs Laboratory Tests Test 08/06/18 04:36 Prothrombin Time 13.8 Prothrombin Time Ratio 1.1 INR International Normalized Ratio 1.05 Sodium Level 141 Potassium Level 3.8 Chloride Level 108 Carbon Dioxide Level 27 Anion Gap 6 Blood Urea Nitrogen 3 L Creatinine 0.68 Est Glomerular Filtrat Rate mL/min > 60 Glucose Level 94 Calcium Level 8.7 Total Bilirubin 0.6 Direct Bilirubin 0.00 Indirect Bilirubin 0.6 Aspartate Amino Transf (AST/SGOT) 53 H Alanine Aminotransferase (ALT/SGPT) 219 H Alkaline Phosphatase 83 Total Protein 6.0 L Albumin 3.2 L Globulin 2.80 Albumin/Globulin Ratio 1.14 Medications Medication Current Medications Famotidine (Pepcid Iv) 20 mg Q12 IV Last administered on 08/06/18at 09:00; Admin Dose 20 MG; Start 08/04/18 at 09:00 Ondansetron HCl (Zofran Inj) 4 mg Q6H PRN IV NAUSEA AND/OR VOMITING; Start 08/04/18 at 02:30 Acetaminophen (Tylenol Tab) 650 mg Q6H PRN PO MILD PAIN(1-3)OR ELEVATED TEMP; Start 08/04/18 at 02:30 Morphine Sulfate (morphine) 2 mg Q4H PRN IV SEVERE PAIN LEVEL 7-10; Start at 02:30 Ceftriaxone Sodium 50 ml @ 100 mls/hr Q24H IVPB Last administered on 08/06/18at 02:45; Admin Dose 100 MLS/HR; Start 08/04/18 at 02:30 Dextrose/Sodium Chloride 1,000 ml @ 75 mls/hr [id number] IV Last administered on 08/06/18at 12:33; Admin Dose 75 MLS/HR; Start 08/04/18 at 03:00 JUAN LAM Aug 06, 2018 14:59
[2018-08-06 15:26] VITALS: BP 108/58; PULSE 64; RESP 18
[2018-08-06 19:15] VITALS: BP 117/62; PULSE 73; RESP 20
[2018-08-07] VITALS (20 sets, daily range): BP systolic 97–161; BP diastolic 55–93; PULSE 56–94; RESP 13–27
[2018-08-07] MEDS: CEFTRIAXONE 1 GM/50 ML (PMX) 50 ML IVPB SCH (02:32)
[2018-08-07] MEDS: DEXTROSE 5%-0.45% NACL 1,000 ML IV SCH ×3 (02:32→06:34)
[2018-08-07] MEDS: FAMOTIDINE 20 MG INJ IV SCH ×2 (08:27→21:39)
--- NOTE | 2018-08-07 09:26 | PN ---
Date/Time of Note Date/Time of Note DATE: 08/07/18 TIME: 09:26 Assessment/Plan VTE Prophylaxis Risk score (from Ns)>0 risk: 1 SCD applied (from Nsg): Yes Pharmacological prophylaxis: NA/contraindicated Pharm contraindication: low risk/ambulating Lines/Catheters IV Catheter Type (from Nrsg): Peripheral IV Assessment/Plan Assessment/Plan 23-year-old female who presented with: 1. Recurrent right upper quadrant and right lower quadrant pain concerning for cholecystitis/symtomatic gallstones 2. Gallstone pancreatitis. 3. Abnormal LFTs likely secondary to #1. 4. Obesity. 5. History of gallstones. 6. Urinary tract infection.ucx neg Plan - clinically improved - advance diet> CLD - pain control - OR today for cholecystectomy Result Diagram: 08/05/185 08/07/18 0427 Results 24hrs Laboratory Tests Test 08/07/18 04:27 Sodium Level 141 Potassium Level 3.5 Chloride Level 109 Carbon Dioxide Level 25 Anion Gap 7 Blood Urea Nitrogen 3 L Creatinine 0.65 Est Glomerular Filtrat Rate mL/min > 60 Glucose Level 93 Calcium Level 8.6 Total Bilirubin 0.7 Direct Bilirubin 0.00 Indirect Bilirubin 0.7 Aspartate Amino Transf (AST/SGOT) 35 Alanine Aminotransferase (ALT/SGPT) 169 H Alkaline Phosphatase 81 Total Protein 6.1 Albumin 3.3 Globulin 2.80 Albumin/Globulin Ratio 1.17 Subjective 24 Hr Interval Summary Free Text/Dictation Going to the OR today Exam/Review of Systems Exam Vitals Vital Signs Date Temp Pulse Resp B/P (MAP) Pulse Ox O2 O2 Flow FiO2 Time Delivery Rate 08/07/18 97.8 56 18 97/55 (69) 97 Room Air 07:26 Intake and Output 08/06/18 08/06/18 08/07/18 1515:00 23:00 07:00 IntakeIntake Total 1360 ml 660 ml 1550 ml OutputOutput Total 1 ml 1 ml BalanceBalance 1359 ml 659 ml 1550 ml Exam abdomen:soft, non tender Results Results 24hrs Laboratory Tests Test 08/07/18 04:27 Sodium Level 141 Potassium Level 3.5 Chloride Level 109 Carbon Dioxide Level 25 Anion Gap 7 Blood Urea Nitrogen 3 L Creatinine 0.65 Est Glomerular Filtrat Rate mL/min > 60 Glucose Level 93 Calcium Level 8.6 Total Bilirubin 0.7 Direct Bilirubin 0.00 Indirect Bilirubin 0.7 Aspartate Amino Transf (AST/SGOT) 35 Alanine Aminotransferase (ALT/SGPT) 169 H Alkaline Phosphatase 81 Total Protein 6.1 Albumin 3.3 Globulin 2.80 Albumin/Globulin Ratio 1.17 Medications Medication Current Medications Famotidine (Pepcid Iv) 20 mg Q12 IV Last administered on 08/07/18at 08:27; Admin Dose 20 MG; Start 08/04/18 at 09:00 Ondansetron HCl (Zofran Inj) 4 mg Q6H PRN IV NAUSEA AND/OR VOMITING; Start 08/04/18 at 02:30 Acetaminophen (Tylenol Tab) 650 mg Q6H PRN PO MILD PAIN(1-3)OR ELEVATED TEMP; Start 08/04/18 at 02:30 Morphine Sulfate (morphine) 2 mg Q4H PRN IV SEVERE PAIN LEVEL 7-10; Start 08/04/18 at 02:30 Ceftriaxone Sodium 50 ml @ 100 mls/hr Q24H IVPB Last administered on 08/07/18at 02:32; Admin Dose 100 MLS/HR; Start 08/04/18 at 02:30 Dextrose/Sodium Chloride 1,000 ml @ 75 mls/hr [id number] IV Last administered on 08/07/18at 06:34; Admin Dose 75 MLS/HR; Start 08/07/18 at 04:30 ASHLEY GREEN MD Aug 07, 2018 09:26
--- NOTE | 2018-08-07 10:46 | PN ---
Date/Time of Note Date/Time of Note DATE: 08/07/18 TIME: 10:44 Assessment/Plan VTE Prophylaxis Risk score (from Ns)>0 risk: 1 SCD applied (from Nsg): Yes Pharmacological prophylaxis: other (scds) Lines/Catheters IV [facility] (from [facility]): Peripheral IV Assessment/Plan Hospital Course Summary Assessment and Plan: Assessment: Gallstone pancreatitis- resolved -MRCP-Cholelithiasis is seen with borderline gallbladder wall thickening and trace pericholecystic fluid extending to the nadine hepatis. No biliary obstruction and no visible intraductal stone Transaminitis- trending down Cholelithiasis Obesity UTI- on antibiotics Plan: Pt currently off the floor in surgery Patient seen in collaboration with Dr. Boyle Subjective: Course reviewed with nursing staff Patient interviewed and examined All labs, imaging and other results reviewed Will assess in am- if stable GI will sign off Exam off the floor Result Diagram: 08/05/185 08/07/187 Results 24hrs Laboratory Tests Test 08/07/18 04:27 Sodium Level 141 Potassium Level 3.5 Chloride Level 109 Carbon Dioxide Level 25 Anion Gap 7 Blood Urea Nitrogen 3 L Creatinine 0.65 Est Glomerular Filtrat Rate mL/min > 60 Glucose Level 93 Calcium Level 8.6 Total Bilirubin 0.7 Direct Bilirubin 0.00 Indirect Bilirubin 0.7 Aspartate Amino Transf (AST/SGOT) 35 Alanine Aminotransferase (ALT/SGPT) 169 H Alkaline Phosphatase 81 Total Protein 6.1 Albumin 3.3 Globulin 2.80 Albumin/Globulin Ratio 1.17 Exam/Review of Systems Exam Vitals Vital Signs Date Temp Pulse Resp B/P (MAP) Pulse Ox O2 O2 Flow FiO2 Time Delivery Rate 08/07/18 97.8 56 18 97/55 (69) 97 Room Air 07:26 Intake and Output 08/06/18 08/06/18 08/07/18 1515:00 23:00 07:00 IntakeIntake Total 1360 ml 660 ml 1550 ml OutputOutput Total 1 ml 1 ml BalanceBalance 1359 ml 659 ml 1550 ml Results Results 24hrs Laboratory Tests Test 08/07/18 04:27 Sodium Level 141 Potassium Level 3.5 Chloride Level 109 Carbon Dioxide Level 25 Anion Gap 7 Blood Urea Nitrogen 3 L Creatinine 0.65 Est Glomerular Filtrat Rate mL/min > 60 Glucose Level 93 Calcium Level 8.6 Total Bilirubin 0.7 Direct Bilirubin 0.00 Indirect Bilirubin 0.7 Aspartate Amino Transf (AST/SGOT) 35 Alanine Aminotransferase (ALT/SGPT) 169 H Alkaline Phosphatase 81 Total Protein 6.1 Albumin 3.3 Globulin 2.80 Albumin/Globulin Ratio 1.17 Medications Medication Current Medications Famotidine (Pepcid Iv) 20 mg Q12 IV Last administered on 08/07/18at 08:27; Admin Dose 20 MG; Start 08/04/18 at 09:00 Ondansetron HCl (Zofran Inj) 4 mg Q6H PRN IV NAUSEA AND/OR VOMITING; Start 08/04/18 at 02:30 Acetaminophen (Tylenol Tab) 650 mg Q6H PRN PO MILD PAIN(1-3)OR ELEVATED TEMP; Start 08/04/18 at 02:30 Morphine Sulfate (morphine) 2 mg Q4H PRN IV SEVERE PAIN LEVEL 7-10; Start 08/04/18 at 02:30 Ceftriaxone Sodium 50 ml @ 100 mls/hr Q24H IVPB Last administered on 08/07/18at 02:32; Admin Dose 100 MLS/HR; Start 08/04/18 at 02:30 Dextrose/Sodium Chloride 1,000 ml @ 75 mls/hr [id number] IV Last administered on 08/07/18at 06:34; Admin Dose 75 MLS/HR; Start 08/07/18 at 04:30 JUAN LAM Aug 07, 2018 10:46
[2018-08-07] MEDS ORDERED: MIDAZOLAM 1 MG/ML 2 ML INJ ONE ×2 (10:50→11:26)
[2018-08-07] MEDS ORDERED: LIDOCAINE 1% (MPF) 30 ML INJ ONE (10:55)
[2018-08-07] MEDS ORDERED: BUPIVACAINE 0.5%/EPI (SDV) 30 ML INJ ONE (10:55)
--- NOTE | 2018-08-07 10:56 | PREAC ---
Date/Time of Note Date/Time of Note DATE: 08/07/18 TIME: 10:55 Anesthesia Eval and Record Evaluation Time Pre-Procedure Interview DATE: 08/07/18 TIME: 10:55 Age 23 Sex female NPO: 8 hrs Preoperative diagnosis gallstones Planned procedure laproscopic cholecystectomy Past Medical History Past Medical History: Includes GI: Obesity Surgery & Anesthesia Issues No known issue Meds Anticoagulation: No Beta Nixon within 24 hr: No Reason Beta Nixon not given: Pt. not on B-Nixon Current Medications Famotidine (Pepcid Iv) 20 mg Q12 IV Last administered on 08/07/18at 08:27; Admin Dose 20 MG; Start 08/04/18 at 09:00 Ondansetron HCl (Zofran Inj) 4 mg Q6H PRN IV NAUSEA AND/OR VOMITING; Start 08/04/18 at 02:30 Acetaminophen (Tylenol Tab) 650 mg Q6H PRN PO MILD PAIN(1-3)OR ELEVATED TEMP; Start 08/04/18 at 02:30 Morphine Sulfate (morphine) 2 mg Q4H PRN IV SEVERE PAIN LEVEL 7-10; Start 08/04/18 at 02:30 Ceftriaxone Sodium 50 ml @ 100 mls/hr Q24H IVPB Last administered on 08/07/18at 02:32; Admin Dose 100 MLS/HR; Start 08/04/18 at 02:30 Dextrose/Sodium Chloride 1,000 ml @ 75 mls/hr [id number] IV Last administered on 08/07/18at 06:34; Admin Dose 75 MLS/HR; Start 08/07/18 at 04:30 Meds reviewed: Yes Allergies Coded Allergies: No Known Allergy (Unverified , 08/03/18) Allergies Reviewed: Yes Labs/Studies Labs Reviewed: Reviewed by anesthesiologist Result Diagram: 08/05/18 0425 08/07/18 0427 Laboratory Tests 08/07/18 04:27 test: Negative Pre-procedure Exam Last vitals Vital Signs Date Temp Pulse Resp B/P (MAP) Pulse Ox O2 O2 Flow FiO2 Time Delivery Rate 08/07/18 97.8 56 18 97/55 (69) 97 Room Air 07:26 Airway: Adequate mouth opening, Adequate thyromental dist Mallampati: Mallampati IV Teeth: Normal Lung: Normal Heart: Normal ASA Physical Status ASA physical status: 2 Emergency: None Pre-operative Attestations Prior to commencing anesthesia and surgery, the patient was re-evaluated, there was verification of: *The patient's identity *The results of appropriate recent lab work and preoperative vital signs *The above evaluation not changing prior to induction *Anesthetic plan, risk benefits, alternative and complications discussed with patient/family; questions answered; patient/family understands, accepts and wi shes to proceed. ATILIO KENDALL DO Aug 07, 2018 10:56
[2018-08-07] MEDS ORDERED: ONDANSETRON 4 MG INJ IV PRN ×2 (11:00→13:00)
[2018-08-07] MEDS ORDERED: LABETALOL HCL 20MG INJ IV PRN (11:00)
[2018-08-07] MEDS ORDERED: HYDROmorphONE 1 MG/5 ML IV SYRINGE IV PRN ×3 (11:00)
[2018-08-07] MEDS ORDERED: PROPOFOL 20 ML ONE (11:04)
[2018-08-07] MEDS ORDERED: ROCURONIUM 50 MG INJ ONE (11:04)
[2018-08-07] MEDS ORDERED: ROPIVACAINE 0.5 % 30 ML VIAL ONE (11:05)
[2018-08-07] MEDS ORDERED: LIDOCAINE 1% (MDV) 20 ML INJ ONE (11:05)
[2018-08-07] MEDS ORDERED: LIDOCAINE 1% (MPF) 30 ML INJ INJ ONE (11:09)
[2018-08-07] MEDS ORDERED: BUPIVACAINE 0.5%/EPI (SDV) 30 ML INJ INJ ONE (11:10)
[2018-08-07] MEDS ORDERED: ONDANSETRON 4 MG INJ ONE (11:35)
[2018-08-07] MEDS ORDERED: DEXAMETHASONE 4 MG/ML 5 ML INJ ONE (11:35)
[2018-08-07] MEDS ORDERED: SUGAMMADEX SODIUM 200 MG/2 ML VIAL IV ONE (12:39)
--- NOTE | 2018-08-07 12:45 | OPR ---
Date/Time of Note Date/Time of Note DATE: 08/07/18 TIME: 12:41 Operative Report Procedure Date: Aug 07, 2018 Preoperative Diagnosis Gallstone pancreatitis Postoperative Diagnosis Gallstone pancreatitis Operation/Procedure Performed Laparoscopic cholecystectomy with fluorescent cholangiogram Surgeon see signature line Home Specialist None Anesthesia Type: general Anesthesiologist: ATILIO KENDALL DO Estimated Blood Loss: minimal Transfusion none Specimen Gallbladder Grafts/Implants none Complications none Pt Condition Post Procedure: stable Disposition: PACU Indications Resolving gallstone pancreatitis. MRCP cleared the bile ducts. Procedure Description The risks, benefits and alternatives of the procedure were discussed with the patient and informed consent was obtained. We discussed with the patient and the family possibility of the bleeding, infection, injury to other organs, bile ducts injury, retained stones and necessity of the ERCP. OPERATIVE PROCEDURE: The patient was brought to the operating room and placed supine. IV antibiotics were given. Venodynes were placed to both lower extremities. General endotracheal anesthesia was achieved. The abdomen was prepped and draped in a sterile fashion. 0.25% Marcaine with epinephrine was used for local anesthesia. A small infraumbilical incision was made and a Veress needle inserted. Intraperitoneal position was confirmed using the saline drop test. Carbon dioxide pneumoperitoneum was achieved with a good filling pressure to 15 mmHg. The 30-degree 5 mm video laparoscope was inserted through a 5-mm trocar placed in the right paramedian position just next to umbilicus. There was no evidence of injury after Veress needle and trocar insertion. Additional trocars were placed, a 10-mm subxiphoid trocar, and two 5-mm trocars at the right upper quadrant. The gallbladder was grasped at the fundus and elevated cephalad. The area at Calot's triangle was dissected using blunt and electrocautery dissection, and critical view was obtained. ICG imaging confirmed the correct identification of the biliary ducts. Clip placed across the cystic duct and artery. The cystic duct was clipped additionally and then divided. The cystic artery was clipped x2 additionally. The gallbladder was dissected off the liver using electrocautery dissection and removed using an EndoCatch bag. The trocars were removed under direct visualization and no bleeding seen at the trocar sites. The pneumoperitoneum was reduced and the subxiphoid and umbilical trocar sites closed with 0 Vicryl to reapproximate the fascia. The trocar sites were reapproximated with 4-0 Monocryl sutures. Steri-Strips and sterile dressings were applied. The sponge and instrument counts were reported as correct x2. Estimated blood loss was 5 cc. The patient was woken from anesthesia, extubated, and transferred to the recovery room in stable condition. By the end of the procedure, the instrument and sponge counts were correct x2. STATEMENT OF PRESENCE: Dr. Obando was present for the entire case. ODILON OBANDO MD Aug 07, 2018 12:45
[2018-08-07] MEDS ORDERED: HYDROmorphONE 0.5 MG/0.5 ML SYG IV PRN (13:00)
[2018-08-07] MEDS ORDERED: DIPHENHYDRAMINE 25 MG CAP PO PRN (13:00)
--- NOTE | 2018-08-07 13:19 | PAC ---
Date/Time of Note Date/Time of Note DATE: 08/07/18 TIME: 13:19 Post-Anesthesia Notes Post-Anesthesia Note Last documented vital signs Vital Signs Date Temp Pulse Resp B/P (MAP) Pulse Ox O2 O2 Flow FiO2 Time Delivery Rate 08/07/18 97.8 56 18 97/55 (69) 97 Room Air 07:26 Activity: WNL Respiratory function: WNL Cardiovascular function: WNL Mental status: Baseline Pain reasonably controlled: Yes Hydration appropriate: Yes Nausea/Vomiting absent: Yes ATILIO KENDALL DO Aug 07, 2018 13:19
[2018-08-07] MEDS: D5W-0.45 NACL + KCL 20 MEQ 1,000 ML IV SCH ×2 (14:08→22:45)
[2018-08-07] MEDS ORDERED: VANCOMYCIN 1 GM INJ ONE (15:24)
[2018-08-07] MEDS: HYDROCODONE/APAP (5/325) TAB PO PRN (19:39)
[2018-08-08] VITALS: BP 116/62; PULSE 70; RESP 20
[2018-08-08] MEDS: D5W-0.45 NACL + KCL 20 MEQ 1,000 ML IV SCH (01:05)
[2018-08-08] MEDS: HYDROCODONE/APAP (5/325) TAB PO PRN ×2 (03:50→10:12)
[2018-08-08 07:36] VITALS: BP 121/68; PULSE 82; RESP 20
[2018-08-08] MEDS: FAMOTIDINE 20 MG INJ IV SCH (08:34)
--- NOTE | 2018-08-08 09:17 | PN ---
Date/Time of Note Date/Time of Note DATE: 08/08/18 TIME: 09:16 Assessment/Plan VTE Prophylaxis Risk score (from Ns)>0 risk: 3 SCD applied (from Ns): Yes Pharmacological prophylaxis: other (scds) Lines/Catheters IV C[facility]ter Type (from [facility] Peripheral IV Assessment/Plan Hospital Course Summary Assessment and Plan: Assessment: Gallstone pancreatitis- resolved -MRCP-Cholelithiasis is seen with borderline gallbladder wall thickening and trace pericholecystic fluid extending to the nadine hepatis. No biliary obstruction and no visible intraductal stone Transaminitis- trending down Cholelithiasis Obesity UTI- on antibiotics Plan: S/p Lap cholecystectomy Diet per surgery GI will sign off but will be available upon reconsult as needed Patient seen in collaboration with Dr. Boyle Subjective: Course reviewed with nursing staff Patient interviewed and examined All labs, imaging and other results reviewed Pt c/o some surgical pain, to be expected. No c/o n/v. Tolerating clear liquid diet well Exam PHYSICAL EXAMINATION: GENERAL: Alert & oriented x 3, obesity, in no acute distress SKIN: surgical incisions HEAD: Normocephalic, atraumatic, no tenderness. EYES: Pupils equal reactive to light and accommodation, no discharge. EARS/NOSE AND THROAT: Ears normal, nose normal. NECK: Supple, no masses. CHEST: Inspection within normal limits. CARDIOVASCULAR: Heart: Regular rate and rhythm RESPIRATORY: Lungs clear to auscultation GASTROINTESTINAL AND LIVER: Abdomen: Soft, upper abdominal tenderness, non- distended, no hernias, no masses, no rebound tenderness, normoactive bowel sounds. Rectal: Deferred. GENITOURINARY: Female genitalia within normal limits. EXTREMITIES: No cyanosis, clubbing or edema. Result Diagram: 08/08/18 0432 08/08/18 0432 Results 24hrs Laboratory Tests Test 08/08/18 04:32 White Blood Count 11.6 #H Red Blood Count 4.42 Hemoglobin 11.9 L Hematocrit 35.6 L Mean Corpuscular Volume 80.5 L Mean Corpuscular Hemoglobin 26.9 L Mean Corpuscular Hemoglobin Concent 33.4 Red Cell Distribution Width 12.8 Platelet Count 266 # Mean Platelet Volume 10.3 Immature Granulocytes % 0.300 Neutrophils % 74.7 Lymphocytes % 14.8 L Monocytes % 9.7 Eosinophils % 0.3 Basophils % 0.2 Nucleated Red Blood Cells % 0.0 Immature Granulocytes # 0.040 H Neutrophils # 8.6 H Lymphocytes # 1.7 Monocytes # 1.1 H Eosinophils # 0.0 Basophils # 0.0 Nucleated Red Blood Cells # 0.0 Sodium Level 140 Potassium Level 4.3 Chloride Level 108 Carbon Dioxide Level 24 Anion Gap 8 Blood Urea Nitrogen 6 L Creatinine 0.63 Est Glomerular Filtrat Rate mL/min > 60 Glucose Level 115 Calcium Level 9.0 Total Bilirubin 0.7 Direct Bilirubin 0.00 Indirect Bilirubin 0.7 Aspartate Amino Transf (AST/SGOT) 64 H Alanine Aminotransferase (ALT/SGPT) 172 H Alkaline Phosphatase 77 Total Protein 6.4 Albumin 3.5 Globulin 2.90 Albumin/Globulin Ratio 1.20 Exam/Review of Systems Exam Vitals Vital Signs Date Temp Pulse Resp B/P (MAP) Pulse Ox O2 O2 Flow FiO2 Time Delivery Rate 08/08/18 98.2 82 20 121/68 96 07:36 (85) 08/08/18 Room Air 00:00 Intake and Output 08/07/18 08/07/18 08/08/18 1515:00 23:00 07:00 IntakeIntake Total 1300 ml 800 ml 1200 ml OutputOutput Total 10 ml BalanceBalance 1290 ml 800 ml 1200 ml Results Results 24hrs Laboratory Tests Test 08/08/18 04:32 White Blood Count 11.6 #H Red Blood Count 4.42 Hemoglobin 11.9 L Hematocrit 35.6 L Mean Corpuscular Volume 80.5 L Mean Corpuscular Hemoglobin 26.9 L Mean Corpuscular Hemoglobin Concent 33.4 Red Cell Distribution Width 12.8 Platelet Count 266 # Mean Platelet Volume 10.3 Immature Granulocytes % 0.300 Neutrophils % 74.7 Lymphocytes % 14.8 L Monocytes % 9.7 Eosinophils % 0.3 Basophils % 0.2 Nucleated Red Blood Cells % 0.0 Immature Granulocytes # 0.040 H Neutrophils # 8.6 H Lymphocytes # 1.7 Monocytes # 1.1 H Eosinophils # 0.0 Basophils # 0.0 Nucleated Red Blood Cells # 0.0 Sodium Level 140 Potassium Level 4.3 Chloride Level 108 Carbon Dioxide Level 24 Anion Gap 8 Blood Urea Nitrogen 6 L Creatinine 0.63 Est Glomerular Filtrat Rate mL/min > 60 Glucose Level 115 Calcium Level 9.0 Total Bilirubin 0.7 Direct Bilirubin 0.00 Indirect Bilirubin 0.7 Aspartate Amino Transf (AST/SGOT) 64 H Alanine Aminotransferase (ALT/SGPT) 172 H Alkaline Phosphatase 77 Total Protein 6.4 Albumin 3.5 Globulin 2.90 Albumin/Globulin Ratio 1.20 Medications Medication Current Medications Famotidine (Pepcid Iv) 20 mg Q12 IV Last administered on 08/08/18 08:34; Admin Dose 20 MG; Start 08/04/18 at 09:00 Acetaminophen (Tylenol Tab) 650 mg Q6H PRN PO MILD PAIN(1-3)OR ELEVATED TEMP; Start 08/04/18 at 02:30 Morphine Sulfate (morphine) 2 mg Q4H PRN IV SEVERE PAIN LEVEL 7-10 Last administered on 08/07/18 16:05; Admin Dose 2 MG; Start 08/04/18 at 02:30 Ondansetron HCl (Zofran Inj) 4 mg Q6H PRN IV NAUSEA AND/OR VOMITING; Start 08/07/18 at 13:00 Hydromorphone HCl (Dilaudid) 0.5 mg Q4H PRN IV BREAKTHROUGH PAIN Last administered on 08/08/18at 08:32; Admin Dose 0.5 MG; Start 08/07/18 at 13:00 Acetaminophen/ Hydrocodone Bitart ([place] (5/325)) 1 tab Q6H PRN PO PAIN LEVEL 6-10 Last administered on 08/08/18at 03:50; Admin Dose 1 TAB; Start 08/07/18 at 13:00 Diphenhydramine HCl (Benadryl) 25 mg Q6H PRN PO PRURITUS; Start 08/07/18 at 13:00 Potassium Chloride/Dextrose/ Sod Cl 1,000 ml @ 100 mls/hr Q10H IV Last administered on 08/08/18 01:05; Admin Dose 100 MLS/HR; Start 08/07/18 at 12:45 JUAN LAM Aug 08, 2018 09:17
== END 2018-08-08 14:35 | disposition home or self-care (01) | DRG 418 ==
LOC: FTE 20:58 → MS1 23:55
PROVIDERS: ADMIT Internal Medicine Nephrology; ATTEND Internal Medicine Nephrology
PROC: BF13YZZ Fluoroscopy of Gallbladder and Bile Ducts using Other Contrast (ICD-10-PCS; 2018-08-07)
PROC: 0FT44ZZ Resection of Gallbladder, Percutaneous Endoscopic Approach (ICD-10-PCS; principal; 2018-08-07 11:00)
DX: K85.10 Biliary acute pancreatitis without necrosis or infection (principal); K80.10 Calculus of gallbladder with chronic cholecystitis without obstruction; N39.0 Urinary tract infection, site not specified; E66.9 Obesity, unspecified; Z68.33 Body mass index [BMI] 33.0-33.9, adult
CPT/HCPCS: 74181; 76705; 80053; 81001; 81025; 83690; 83735; 84100; 85025; 85610; 86704; 86706; 86803; 87086; 87340; 88304; J0696; J1100; J1170; J1885; J2250; J2270; J2405; J2795; J3010; J3370; J3480; J7030; J7042